=== PATIENT | male | born 1970 | race Caucasian/White ===

== ENCOUNTER 2022-04-07 08:11 | Outpatient (CLI) | payer OTHER | END 2022-04-07 08:12 | disposition home or self-care (01) | LOC: LABBT 08:11 | PROVIDERS: ATTEND Specialist | DX: Z01.818 Encounter for other preprocedural examination (principal); G47.30 Sleep apnea, unspecified; J34.2 Deviated nasal septum; J34.3 Hypertrophy of nasal turbinates; J35.1 Hypertrophy of tonsils; Z20.822 Contact with and (suspected) exposure to COVID-19 | CPT/HCPCS: 87811; 93005; 93010 ==

== ENCOUNTER 2022-04-09 06:50 | Day surgery (SDC) | payer OTHER ==
[2022-04-09] MEDS ORDERED: Oxymetazoline HCl 0.05% (30 ML BOT) ONE ×2 (07:47→08:39)
[2022-04-09] MEDS ORDERED: Lidocaine 1% MPF 2 ML VIAL ONE (07:47)
[2022-04-09] MEDS ORDERED: fentaNYL Citrate/PF 100 MCG/2 ML SYRINGE ONE ×2 (08:10→10:17)
[2022-04-09] MEDS ORDERED: Ketamine 50 MG/ML (10ML VIAL) ONE (08:10)
[2022-04-09] MEDS ORDERED: Dexmedetomidine 200 MCG/2 ML VIAL ONE (08:10)
[2022-04-09] MEDS ORDERED: Bupivacaine/Epinephrine 0.25% 30 ML VIAL ONE (08:39)
[2022-04-09] MEDS ORDERED: Ferric Subsulfate (ASTRINGYN) 8 GM VIAL ONE (08:39)
[2022-04-09] MEDS ORDERED: Neostigmine Methylsulfate 3 MG/3 ML SYRINGE ONE (08:55)
[2022-04-09] MEDS ORDERED: Ondansetron PF 4 MG/2 ML Vial ONE (08:55)
[2022-04-09] MEDS ORDERED: Lidocaine 1% PF 5 ML VIAL ONE (08:55)
[2022-04-09] MEDS ORDERED: Dexamethasone 20 MG/5 ML VIAL ONE (08:55)
[2022-04-09] MEDS ORDERED: PROPOFOL 200 MG/20 ML VIAL ONE (08:55)
[2022-04-09] MEDS ORDERED: Rocuronium Bromide 10 MG/ML (10ML VIAL) ONE (08:55)
[2022-04-09] MEDS ORDERED: Glycopyrrolate 0.2 MG/ML 5 ML SYRINGE ONE (08:55)
[2022-04-09] MEDS ORDERED: Labetalol HCl 100 MG/20 ML VIAL ONE (08:55)
[2022-04-09] MEDS ORDERED: hydrALAZINE 20 MG/ML VIAL ONE (10:18)
[2022-04-09] MEDS ORDERED: Fentanyl 100 MCG/2 ML VIAL ONE ×2 (10:37→10:57)
[2022-04-09] MEDS ORDERED: Midazolam HCl 2 mg/2 ml Vial ONE ×2 (10:42→11:25)
[2022-04-09] MEDS ORDERED: Lidocaine Viscous Sol 2% 15 ml UD Cup ONE (11:34)
[2022-04-09] MEDS ORDERED: Hydrocodone-Acetamin 15 ML UDCUP ONE (12:17)
== END 2022-04-09 13:32 | disposition home or self-care (01) ==
LOC: SDC 06:50
PROVIDERS: ATTEND Specialist
PROC: 09SL8ZZ Reposition Nasal Turbinate, Via Natural or Artificial Opening Endoscopic (ICD-10-PCS; principal; 2022-04-09)
PROC: 0CTPXZZ Resection of Tonsils, External Approach (ICD-10-PCS; principal; 2022-04-09)
PROC: 0CTNXZZ Resection of Uvula, External Approach (ICD-10-PCS; principal; 2022-04-09)
PROC: 09SM0ZZ Reposition Nasal Septum, Open Approach (ICD-10-PCS; principal; 2022-04-09)
DX: J35.1 Hypertrophy of tonsils (principal); J34.2 Deviated nasal septum; J34.3 Hypertrophy of nasal turbinates; K13.79 Other lesions of oral mucosa; G47.33 Obstructive sleep apnea (adult) (pediatric); Z79.899 Other long term (current) drug therapy
CPT/HCPCS: 88304; J0360; J1100; J2250; J2405; J2704; J3010